=== PATIENT | male | born 1995 | race African-American/Black ===

== ENCOUNTER 2025-02-24 06:50 | Emergency (ER) | payer OTHER, SELFPAY ==
[~2025-02-24] VITALS: Ht 167.6 cm; Wt 77.4 kg
[2025-02-24] MEDS: NS (Normal Saline) 0.9% 1,000 ML IV ONE (08:16)
[2025-02-24] MEDS: ONDANSETRON 4MG 2ML VIAL IV ONE (08:16)
[2025-02-24 08:48] LABS: BASO % 0.5 % (0.0-1.0); EOS # 0.1 10^3/uL (0.0-0.5); EOS % 1.3 % (0.0-3.0); HEMOGLOBIN 15.3 g/dl (13.5-17.5); LYMPH # 1.2 10^3/uL (1.5-5.0); LYMPH % 20.7 % (24.0-44.0); MEAN CORPUSCULAR HEMOGLOBIN 29.7 pg (27.0-33.0); MEAN CORPUSCULAR HGB CONC 34.8 g/dl (32.0-36.5); MEAN CORPUSCULAR VOLUME 85.3 fl (80.0-96.0); MONO # 0.4 10^3/uL (0.0-0.8); MONO % 6.9 % (2.0-8.0); NEUTROPHILS # 4.2 10^3/uL (1.5-8.5); NEUTROPHILS % 70.4 % (36.0-66.0); PLATELET COUNT, AUTOMATED 172 10^3/uL (150-450); RED BLOOD COUNT 5.16 10^6/uL (4.30-6.10)
[2025-02-24] MEDS: METOCLOPRAMIDE INJ 10MG/2ML VIAL IV ONE (08:53)
[2025-02-24] MEDS: DICYCLOMINE INJ 20MG/2ML IM ONE (08:53)
[2025-02-24 09:17] LABS: ALBUMIN 4.7 G/DL (3.2-5.2); BILIRUBIN,DIRECT 0.3 MG/DL (<0.4); TOTAL PROTEIN 7.6 G/DL (5.7-8.2)
[2025-02-24] MEDS: HALOPERIDOL LACTATE 5MG/ML VIAL IV ONE (09:43)
[2025-02-24] MEDS: CAPSAICIN 0.025% CR 60 GM TOP ONE (09:50)
[2025-02-24 09:53] VITALS: BP 125/67; TEMP 96.6; O2SAT 100
[2025-02-24] MEDS ORDERED: REGL10TA6 PO (10:07)
== END 2025-02-24 10:17 | disposition home or self-care (01) ==
LOC: M ED 06:50
DX: R11.2 Nausea with vomiting, unspecified (principal); Z21 Asymptomatic human immunodeficiency virus [HIV] infection status; Z79.899 Other long term (current) drug therapy
CPT/HCPCS: 80047; 80076; 83690; 85025; 96361; 96372; 96374; 96375; 99284; J0500; J1630; J2405; J2765

== ENCOUNTER 2025-02-26 08:15 | Emergency (ER) | payer OTHER, SELFPAY ==
[~2025-02-26] VITALS: Ht 167.6 cm; Wt 78.7 kg
[~2025-02-26 08:15] MED LIST: REGL10TA6 PO
[2025-02-26 09:12] LABS: BASO % 0.3 % (0.0-1.0); EOS # 0.1 10^3/uL (0.0-0.5); EOS % 0.9 % (0.0-3.0); HEMATOCRIT 42.8 % (42.0-52.0); LYMPH # 1.3 10^3/uL (1.5-5.0); LYMPH % 22.8 % (24.0-44.0); MEAN CORPUSCULAR HEMOGLOBIN 29.8 pg (27.0-33.0); MEAN CORPUSCULAR VOLUME 84.9 fl (80.0-96.0); MONO # 0.7 10^3/uL (0.0-0.8); MONO % 11.6 % (2.0-8.0); NEUTROPHILS # 3.8 10^3/uL (1.5-8.5); NEUTROPHILS % 64.2 % (36.0-66.0); PLATELET COUNT, AUTOMATED 169 10^3/uL (150-450); RED BLOOD COUNT 5.04 10^6/uL (4.30-6.10); WHITE BLOOD COUNT 5.8 10^3/uL (4.0-10.0)
[2025-02-26 09:32] LABS: BLOOD UREA NITROGEN 13 MG/DL (9-23); CALCIUM LEVEL 9.5 MG/DL (8.5-10.1); CARBON DIOXIDE LEVEL 31 MMOL/L (20-31); CHLORIDE LEVEL 93 MMOL/L (98-107); CREATININE FOR GFR 0.88 MG/DL (0.70-1.30); GLOMERULAR FILTRATION RATE > 90.0 (>60); GLUCOSE, FASTING 101 MG/DL (60-100); POTASSIUM SERUM 3.9 MMOL/L (3.5-5.1); SODIUM LEVEL 132 MMOL/L (136-145)
[2025-02-26] MEDS: METOCLOPRAMIDE 10MG TAB PO ONE (09:52)
[2025-02-26] MEDS: NS (Normal Saline) 0.9% 1,000 ML IV ONE (10:06)
[2025-02-26] MEDS ORDERED: ISOVUE-370 76% 100ML VIAL As Ordered ONE (11:12)
[2025-02-26] MEDS: ONDANSETRON 4MG 2ML VIAL IV ONE (11:14)
[2025-02-26 13:05] VITALS: BP 124/72; TEMP 97.6; O2SAT 99
== END 2025-02-26 13:08 | disposition home or self-care (01) ==
LOC: M ED 08:15
DX: R11.11 Vomiting without nausea (principal); F12.10 Cannabis abuse, uncomplicated; Z79.899 Other long term (current) drug therapy
CPT/HCPCS: 74177; 80048; 85025; 96374; 99284; J2405; Q9967